=== PATIENT | male | born 1960 | race Caucasian/White ===

== ENCOUNTER 2021-05-05 13:48 | Emergency (ER) | payer BC ==
[~2021-05-05] VITALS: Ht 182.9 cm; Wt 115.7 kg
[2021-05-05 14:00] VITALS: BP_SYST 131
--- NOTE | 2021-05-05 14:30 | NUR ---
Placed in room 6 . Placed on potline monitor, blood pressure machine and pulse oximeter. To gown for exam. Side rails up.
[2021-05-05] MEDS ORDERED: OXYCODONE/ACETAMINOPHEN 5-325 TABLET PO ONE (14:45)
--- NOTE | 2021-05-05 14:45 | NUR ---
PT BIBA AFTER STEPPING OFF OF HIS TRUCK BED AND LANDING WRONG ON HIS LEFT LEG WITH EXTENDED KNEE. PT REPORTS HEARING A POP AND STATES PAIN IS ON THE LATERAL POSTERIOR LEFT KNEE. PT IS AAOX4, V/S STABLE
--- NOTE | 2021-05-05 15:13 | NUR ---
ER DR. ISAAC AT THE BEDSIDE EXAMINING PT
--- NOTE | 2021-05-05 15:13 | NUR ---
PORTABLE X-RAY AT THE BEDSIDE
--- NOTE | 2021-05-05 16:30 | NUR ---
PT SITTING UP IN [place], AWAKE, ALERT, EVEN UNLABORED RESPIRATIONS, NO DISTRESS NOTED.
--- NOTE | 2021-05-05 17:20 | NUR ---
CRUTCHES NOT IN STOCK IN THE ED, DIETARY SERVICES DIRECTOR CALLED.
--- NOTE | 2021-05-05 17:55 | NUR ---
PT PROVIDED WITH CRUTCHES, KNEE IMMOBILIZER NOT IN STOCK IN THE HOSPITAL. BREAD WRAPPER OPERATOR, CHARGE NURSE AND MD AWARE. PT TO RECEIVE TACO BANDAGE AND ENCOURAGED TO GET A KNEE IMMOBILIZER OTC AND FOLLOW UP WITH ENGINE MECHANIC.
[2021-05-05 18:00] VITALS: BP_SYST 131
--- NOTE | 2021-05-05 18:01 | NUR ---
Patient given written and verbal discharge instructions and verbalizes understanding. ER MD discussed with patient the results and treatment provided. Patient in stable condition. ID arm band removed. NO Rx given. Patient educated on pain management and to follow up with PMD. Pain Scale 0/10. Opportunity for questions provided and answered. Medication side effect fact sheet provided.
== END 2021-05-05 18:01 | disposition home or self-care (01) ==
LOC: SED 13:48
DX: S89.92XA Unspecified injury of left lower leg, initial encounter (principal); M25.562 Pain in left knee; Z88.0 Allergy status to penicillin; W18.39XA Other fall on same level, initial encounter; Y93.89 Activity, other specified; Y92.89 Other specified places as the place of occurrence of the external cause; Y99.8 Other external cause status
CPT/HCPCS: 72170-TC; 73564; 73590-TC; 99284